=== PATIENT | female | born 1945 | race Caucasian/White ===

== ENCOUNTER → 2017-02-06 | Outpatient (CLI) | payer MEDICARE, MEDICAID | END | disposition home or self-care (01) | LOC: NC 14:47 | DX: R30.0 Dysuria (principal) ==

== ENCOUNTER → 2017-03-12 | Outpatient (CLI) | payer MEDICARE, MEDICAID | END | disposition home or self-care (01) | LOC: NC 13:12 | DX: I10 Essential (primary) hypertension (principal); E11.9 Type 2 diabetes mellitus without complications ==

== ENCOUNTER → 2017-04-19 | Outpatient (CLI) | payer MEDICARE, MEDICAID | END | disposition home or self-care (01) | LOC: NC 13:20 | DX: R30.0 Dysuria (principal) ==

== ENCOUNTER → 2017-05-10 | Outpatient (CLI) | payer MEDICARE, MEDICAID ==
--- NOTE | 2017-05-12 12:58 | US ---
EXAM DESCRIPTION: Renal CLINICAL HISTORY: 71 years, Female, CHRONIC CYSTITIS COMPARISON: None. FINDINGS: Right kidney 10.7 cm left kidney 9.3 cm. No hydronephrosis. There is a hyperechoic region lateral interpolar region of the left kidney measuring 10 x 12 x 10 mm. This is indeterminate but likely benign. This may be an area of benign fatty infiltration or other fatty mass. Doppler images of this region were not obtained at time of interpretation. No images of the bladder are provided IMPRESSION: A likely benign hyperechoic region in the lateral left kidney interpolar region about 1 cm present. This can be better characterize with a renal protocol CT scan. Alternatively consider short-term repeat ultrasound in about 3-4 months to evaluate for stability. Kidneys otherwise unremarkable. Electronically signed by: Brian Villanueva MD 05/12/2017 12:56 PM CDT
== END | disposition home or self-care (01) ==
LOC: US 13:17
PROVIDERS: ATTEND Urology
DX: N30.10 Interstitial cystitis (chronic) without hematuria (principal)

== ENCOUNTER → 2017-08-14 | Outpatient (CLI) | payer MEDICARE, MEDICAID | LOC: YCFC.O 10:13 | DX: R53.83 Other fatigue (principal); R73.01 Impaired fasting glucose ==

== ENCOUNTER → 2018-03-13 | Outpatient (CLI) | payer MEDICARE, MEDICAID | LOC: YCFC.O 10:27 | PROVIDERS: ATTEND Nurse Practitioner Family | DX: E11.9 Type 2 diabetes mellitus without complications (principal); E78.5 Hyperlipidemia, unspecified; I10 Essential (primary) hypertension ==

== ENCOUNTER → 2018-05-28 | Outpatient (CLI) | payer MEDICARE, MEDICAID | LOC: NC 13:59 | PROVIDERS: ATTEND Nurse Practitioner Family | DX: R30.0 Dysuria (principal) ==

== ENCOUNTER → 2018-11-04 | Outpatient (CLI) | payer MEDICARE, MEDICAID | LOC: NC 12:40 | PROVIDERS: ATTEND Family Medicine | DX: R30.0 Dysuria (principal) ==

== ENCOUNTER → 2019-01-20 | Outpatient (CLI) | payer MEDICARE, MEDICAID | LOC: NC 16:48 | PROVIDERS: ATTEND Family Medicine | DX: I10 Essential (primary) hypertension (principal); E11.9 Type 2 diabetes mellitus without complications ==

== ENCOUNTER → 2019-04-01 | Outpatient (CLI) | payer MEDICARE, MEDICAID | LOC: NC 20:52 | PROVIDERS: ATTEND Family Medicine | DX: E11.9 Type 2 diabetes mellitus without complications (principal); R63.4 Abnormal weight loss ==

== ENCOUNTER → 2019-06-17 | Outpatient (CLI) | payer MEDICARE, MEDICAID | LOC: NC 14:47 | PROVIDERS: ATTEND Family Medicine | DX: R30.0 Dysuria (principal) ==

== ENCOUNTER 2019-06-28 10:56 | Emergency (ER) | payer MEDICARE, MEDICAID ==
--- NOTE | 2019-06-28 12:08 | CT ---
EXAM DESCRIPTION: Head CLINICAL HISTORY: fall, low bs, mild slurring of speech COMPARISON: None available TECHNIQUE: Non contrast cranial CT FINDINGS: No acute intracranial hemorrhage, transcortical infarct, mass or mass effect. The Ventricles and sulci are unremarkable. No hydrocephalus. The chase-white matter differentiation is intact. Periventricular and deep white matter hypodensities are nonspecific but likely related to chronic microvascular ischemic changes. Small hypodensity within the left insular cortex likely related to prior lacunar infarct. No displaced calvarial fracture. Partial calcification of the left lacrimal gland. The visualized paranasal sinuses and the mastoids are clear. IMPRESSION: 1. No acute intracranial abnormality is seen on CT. This exam was performed according to our departmental dose-optimization program, which includes automated exposure control, adjustment of the mA and/or kV according to patient size and/or use of iterative reconstruction technique. Electronically signed by: Jerrell Hendrix DO 06/28/2019 12:07 PM CDT
--- NOTE | 2019-06-28 12:11 | RAD ---
EXAM DESCRIPTION: Chest,1 View CLINICAL HISTORY: 73 years Female, fall, low bs, weakness COMPARISON: None. TECHNIQUE: AP portable chest. FINDINGS: The lungs are hypoinflated. No focal consolidation, significant pneumothorax or pleural effusion seen. The heart is at the upper limits of normal in size. The aortic is partially calcified. No acute osseous abnormality. IMPRESSION: No acute cardiopulmonary process. Electronically signed by: Jerrell Hendrix DO 06/28/2019 12:09 PM CDT
--- NOTE | 2019-06-28 13:23 | ED.PDOC ---
History of Present Illness - General Chief Complaint: Trauma Stated Complaint: s/p fall Time Seen by Provider: 06/28/19 10:58 Source: patient Exam Limitations: no limitations - History of Present Illness Initial Comments: the patient is a 73-year-old female presenting to the emergency room after having somewhat fallen at home. She was feeling weak and feeling tired. She actually skipped supper last night and had not eaten breakfast. She is a diabetic who takes insulin. When glucose was checked by EMS and was in the 30s. The patient is still slightly slurring her speech upon arrival here in blood sugars to fall back down from 238 down to 71 fairly quickly. No fevers. No sore throat or runny nose. She has apparently maintained getting some lower blood sugars over the last couple of weeks. Timing/Duration: unsure Severity: moderate Improving Factors: medication Worsening Factors: nothing Associated Symptoms: malaise Allergies/Adverse Reactions: Allergies Bupropion Allergy (Unknown, Verified 06/28/19 11:22) Dapagliflozin [From Farxiga] Allergy (Unknown, Verified 06/28/19 11:22) Topiramate [From Topamax] Allergy (Unknown, Verified 06/28/19 11:22) Home Medications: Ambulatory Orders Amlodipine Besylate 10 mg PO DAILY 06/28/19 Ascorbic Acid [C-500 Prolonged Release] 500 mg PO BID 06/28/19 Aspirin [Aspirin Childrens] 81 mg PO DAILY 06/28/19 Atenolol [Tenormin] 50 mg PO BID 06/28/19 Clonazepam 0.5 mg PO DAILY PRN 06/28/19 Cranberry-Vitamin C-Vitamin E [Cranberry Plus Vitamin C] 1 cap PO BID 06/28/19 Insulin Glargine [Toujeo Solostar] 15 unit SC DAILY 06/28/19 Linagliptin-Metformin HCl [Jentadueto] 1 tab PO BID 06/28/19 Lisinopril 20 mg PO BID 06/28/19 Meloxicam 15 mg PO DAILY 06/28/19 Multiple Vitamins W/ Minerals [Womens Multi] 1 cap PO DAILY 06/28/19 Pantoprazole Sodium [Protonix] 20 mg PO DAILY 06/28/19 Pravastatin Sodium [Pravachol] 40 mg PO BEDTIME 06/28/19 Trazodone HCl [Trazodone Hydrochloride] 100 mg PO BEDTIME 06/28/19 Review of Systems - Review of Systems Constitutional: States: malaise, weakness EENTM: States: no symptoms reported Respiratory: States: no symptoms reported Cardiology: States: no symptoms reported Gastrointestinal/Abdominal: States: no symptoms reported Genitourinary: States: no symptoms reported Musculoskeletal: States: no symptoms reported Skin: States: no symptoms reported Neurological: States: see HPI Endocrine: States: no symptoms reported All other Systems: No Change from Baseline Past Medical History (General) - Patient Medical History Hx Stroke: No Hx Congestive Heart Failure: No Hx Hypertension: Yes Hx Diabetes: Yes Surgical History: cholecystectomy - Vaccination History Hx Influenza Vaccination: Yes Hx Pneumococcal Vaccination: No - Social History Hx Tobacco Use: Yes Family Medical History - Family History Mother Family History: Unknown Living Status: Physical Exam - Physical Exam General Appearance: Alert, No apparent distress, Other - mild initial slurring of speech that does clear after glucose improves. Eye Exam: bilateral normal Ears, Nose, Throat: hearing grossly normal, normal ENT inspection, normal pharynx Neck: full range of motion, supple Respiratory: lungs clear, normal breath sounds, no respiratory distress, no accessory muscle use Cardiovascular/Chest: normal peripheral pulses, regular rate, rhythm, no edema Peripheral Pulses: radial,right: 2+, radial,left: 2+ Gastrointestinal/Abdominal: non tender, soft Rectal Exam: deferred Back Exam: no CVA tenderness, no vertebral tenderness Extremity: normal range of motion, non-tender, normal inspection, no pedal edema, normal capillary refill 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, alert, normal mood/affect, oriented x 3 - see above Skin Exam: normal color Comments: Vital Signs - 24 hr 06/28/19 06/28/19 06/28/19 11:12 12:06 13:00 Temperature 97.4 F L Pulse Rate [ 64 53 L 60 Left Brachial] Respiratory 20 13 Rate Blood Pressure 144/65 146/67 145/67 [Left Arm] O2 Sat by Pulse 95 97 Oximetry 06/28/19 11:22 Telemetry .CONTINUOUS 06/28/19 11:23 Vital Signs-Tilt PRN 06/28/19 11:30 EKG STAT 06/28/19 11:35 Urine Culture Stat 06/28/19 13:21 GLUCOSE, FINGER STICK Stat 06/28/19 Lunch Regular Diet Laboratory Results - last 24 hr 06/28/19 06/28/19 06/28/19 11:35 11:35 11:35 WBC 7.8 RBC 3.86 L Hgb 11.9 L Hct 34.9 L MCV 90.6 MCH 30.7 MCHC 33.9 RDW 14.1 Plt Count 153 MPV 8.4 Absolute Neuts (auto) 5.90 Absolute Lymphs (auto) 1.30 Absolute Monos (auto) 0.40 Absolute Eos (auto) 0.10 Absolute Basos (auto) 0.10 Neutrophils % 75.6 Lymphocytes % 16.7 L Monocytes % 5.4 Eosinophils % 1.6 Basophils % 0.7 Sodium 140 Potassium 3.9 Chloride 102 Carbon Dioxide 27 Anion Gap 14.9 BUN 26 H Creatinine 1.10 BUN/Creatinine Ratio 23.6 H POC Glucose Random Glucose 77 Serum Osmolality 283.0 Calcium 9.9 Magnesium 1.8 Total Bilirubin 0.6 AST 24 ALT 17 Alkaline Phosphatase 37 L Creatine Kinase 47 CK-MB (CK-2) 2.0 CK-MB (CK-2) % Not Reportable Troponin I < 0.02 B-Natriuretic Peptide 82.7 Serum Total Protein 7.0 Albumin 4.2 Globulin 2.8 Albumin/Globulin Ratio 1.5 TSH 0.60 Urine Color Urine Appearance Urine pH Ur Specific [place] Urine Protein Urine Glucose (UA) Urine Ketones Urine Blood Urine Nitrite Urine Bilirubin Urine Urobilinogen Ur Leukocyte Esterase Urine RBC Urine WBC Ur Epithelial Cells Urine Bacteria 06/28/19 06/28/19 11:35 12:07 WBC RBC Hgb Hct MCV MCH MCHC RDW Plt Count MPV Absolute Neuts (auto) Absolute Lymphs (auto) Absolute Monos (auto) Absolute Eos (auto) Absolute Basos (auto) Neutrophils % Lymphocytes % Monocytes % Eosinophils % Basophils % Sodium Potassium Chloride Carbon Dioxide Anion Gap BUN Creatinine BUN/Creatinine Ratio POC Glucose 61 L Random Glucose Serum Osmolality Calcium Magnesium Total Bilirubin AST ALT Alkaline Phosphatase Creatine Kinase CK-MB (CK-2) CK-MB (CK-2) % Troponin I B-Natriuretic Peptide Serum Total Protein Albumin Globulin Albumin/Globulin Ratio TSH Urine Color Yellow Urine Appearance Clear Urine pH 6.0 Ur Specific [place] 1.010 Urine Protein Negative Urine Glucose (UA) Negative Urine Ketones Negative Urine Blood Negative Urine Nitrite Negative Urine Bilirubin Negative Urine Urobilinogen 0.2 Ur Leukocyte Esterase Small H Urine RBC 0 Urine WBC 1-3 Ur Epithelial Cells 0 Urine Bacteria Rare head CT shows no acute pathology. Chest x-ray showed no acute pathology. EKG shows sinus bradycardia at 53 bpm. There is mild poor R-wave progression in anterior leads. There is a Q-wave in lead 3 but not aVF. No definitive ST segment or T-wave changes indicative of acute ischemia. Borderline prolonged QT interval corrected. Progress - Progress Progress: 06/28/19 13:25 the patient is a 73-year-old female presenting to the emergency room after having something of a fall earlier this morning. she did not sustain any injuries. No overt loss of consciousness. This appears to be due to hypoglycemia. From the sounds of her symptoms she probably has been having a few episodes earlier in the week. I'm going to recommend that she decrease her insulin from 15 units once a day down to 7 units once a day. She does need to remember not to skip meals. Workup including head CT, chest x-ray and multiple labs are reassuring otherwise. She does have some mild sinus bradycardia however she is not hypotensive. This is likely not contributing. She does need to follow back up with her primary care doctor later this coming week. ER s were given for any worsening. - EKG/XRAY/CT CT Ordered: Yes CT Interpretation Call Back: Yes Departure - Departure Clinical Impression: Hypoglycemia, Sinus bradycardia Fall at home Qualifiers: Encounter type: initial encounter Qualified Code(s): W19.XXXA - Unspecified fall, initial encounter; Y92.009 - Unspecified place in unspecified non- institutional (private) residence as the place of occurrence of the external cause Disposition: Discharge to Home or Self Care Condition: Fair Departure Forms: ED Discharge - Pt. Copy, Patient Portal Self Enrollment Instructions: Low Blood Sugar, Adult (DC) Diet: diabetic diet Activity: increase activity as tolerated Referrals: Josephine Sinclair NP [Primary Care Provider] - 1-2 Weeks Home Medications: Ambulatory Orders Amlodipine Besylate 10 mg PO DAILY 06/28/19 Ascorbic Acid [C-500 Prolonged Release] 500 mg PO BID 06/28/19 Aspirin [Aspirin Childrens] 81 mg PO DAILY 06/28/19 Atenolol [Tenormin] 50 mg PO BID 06/28/19 Clonazepam 0.5 mg PO DAILY PRN 06/28/19 Cranberry-Vitamin C-Vitamin E [Cranberry Plus Vitamin C] 1 cap PO BID 06/28/19 Insulin Glargine [Toujeo Solostar] 15 unit SC DAILY 06/28/19 Linagliptin-Metformin HCl [Jentadueto] 1 tab PO BID 06/28/19 Lisinopril 20 mg PO BID 06/28/19 Meloxicam 15 mg PO DAILY 06/28/19 Multiple Vitamins W/ Minerals [Womens Multi] 1 cap PO DAILY 06/28/19 Pantoprazole Sodium [Protonix] 20 mg PO DAILY 06/28/19 Pravastatin Sodium [Pravachol] 40 mg PO BEDTIME 06/28/19 Trazodone HCl [Trazodone Hydrochloride] 100 mg PO BEDTIME 06/28/19 Additional Instructions: the patient is a 73-year-old female presenting to the emergency room after having something of a fall earlier this morning. she did not sustain any injuries. No overt loss of consciousness. This appears to be due to hypoglycemia. From the sounds of her symptoms she probably has been having a few episodes earlier in the week. I'm going to recommend that she decrease her insulin from 15 units once a day down to 7 units once a day. She does need to remember not to skip meals. Workup including head CT, chest x-ray and multiple labs are reassuring otherwise. She does have some mild sinus bradycardia however she is not hypotensive. This is likely not contributing. She does need to follow back up with her primary care doctor later this coming week. If she continues to have episodes then keeping some glucagon on hand may be warranted. ER s were given for any worsening.
[2019-06-28 13:44] VITALS: BP 159/63; TEMP 96.7; O2SAT 96
== END 2019-06-28 13:45 | disposition home or self-care (01) ==
LOC: ER 10:56
DX: E11.649 Type 2 diabetes mellitus with hypoglycemia without coma (principal); R00.1 Bradycardia, unspecified; I10 Essential (primary) hypertension; Z79.4 Long term (current) use of insulin; Z87.891 Personal history of nicotine dependence; Z79.82 Long term (current) use of aspirin; Z79.899 Other long term (current) drug therapy; Z88.8 Allergy status to other drugs, medicaments and biological substances

== ENCOUNTER → 2019-07-03 | Outpatient (CLI) | payer MEDICARE, MEDICAID | LOC: NC 11:50 | PROVIDERS: ATTEND Family Medicine | DX: R39.0 Extravasation of urine (principal); R30.0 Dysuria ==

== ENCOUNTER → 2019-08-07 | Outpatient (CLI) | payer MEDICARE, MEDICAID | LOC: NC 12:00 | PROVIDERS: ATTEND Family Medicine | DX: R30.0 Dysuria (principal) ==

== ENCOUNTER → 2019-08-19 | Outpatient (CLI) | payer MEDICARE, MEDICAID | LOC: NC 12:05 | PROVIDERS: ATTEND Family Medicine | DX: R30.0 Dysuria (principal) ==

== ENCOUNTER → 2019-09-18 | Outpatient (CLI) | payer MEDICARE, MEDICAID | LOC: NC 17:48 | PROVIDERS: ATTEND Family Medicine | DX: R30.0 Dysuria (principal) ==

== ENCOUNTER → 2019-10-29 | Outpatient (CLI) | payer MEDICARE, MEDICAID | LOC: NC 14:06 | PROVIDERS: ATTEND Family Medicine | DX: E11.9 Type 2 diabetes mellitus without complications (principal); I10 Essential (primary) hypertension; E78.5 Hyperlipidemia, unspecified; R30.0 Dysuria ==

== ENCOUNTER → 2019-12-11 | Outpatient (CLI) | payer MEDICARE, MEDICAID ==
--- NOTE | 2019-12-12 19:52 | US ---
EXAM DESCRIPTION: Renal: Ultrasound. CLINICAL HISTORY: 74 years Female RENAL LESION COMPARISON: Renal ultrasound bilateral April 2017. TECHNIQUE: Transcutaneous scanning: Two-dimensional and Doppler modes. FINDINGS: Right kidney measures 9.6 x 5.4 x 5.2 cm; mid-renal cortical thickness 14 mm. . Increased cortical echogenicity but less than in the liver. No hydronephrosis No echogenic stones. Smooth contour of the kidney with no perinephric fluid. Normal vascularity. Proximal ureter not visualized.. Left kidney measures 8.9 x 5.3 x 5.1 cm; mid-renal cortical thickness 13 mm.. Increased cortical echogenicity but less than the liver. Focal echogenic mass protrudes from the cortex in the mid kidney and measures 1.0 x 1.0 x 0.9 mm. Posterior acoustic shadowing. Nonvascular. No hydronephrosis. No echogenic stones. Minimally lobulated contour of the kidney with no perinephric fluid. Normal vascularity.. Proximal ureter not seen. Urinary bladder not visualized. Abdominal aorta: Not measured. IMPRESSION: 1. Solid echogenic nodule protruding from the left renal cortex slightly smaller than on the prior study. Could represent lipoma more likely angiomyolipoma. Nonvascular. Stable for 30 month interval. Consider one year ultrasound follow-up. 2. Bilateral kidneys also stable since the prior study and findings are most likely age-related. Electronically signed by: Po Fritz MD 12/12/2019 7:50 PM [facility]
== END ==
LOC: US 09:30
PROVIDERS: ATTEND Urology
DX: D41.02 Neoplasm of uncertain behavior of left kidney (principal)

== ENCOUNTER → 2020-01-26 | Outpatient (CLI) | payer MEDICARE, MEDICAID | DX: E11.9 Type 2 diabetes mellitus without complications (principal) ==

== ENCOUNTER → 2020-04-05 | Outpatient (CLI) | payer MEDICARE, MEDICAID ==
--- NOTE | 2020-04-06 19:04 | MAM ---
EXAM DESCRIPTION: 3D Screening BILATERAL : Digital Mammography. CLINICAL HISTORY: 74 years Female ANNUAL SCREENING . No complaints. No personal history of breast cancer or remote family history of breast cancer. Mother with ovarian cancer at age 33. Menarche age 11. Childbirth age 18. Hysterectomy age 28. HRT 5 or more years ago.. Lifetime risk of developing breast cancer (Tyrer-Cuzick model)(%): 3.2. COMPARISON: Baseline study at this facility. No prior reports available. TECHNIQUE: Bilateral CC and MLO projection full-field images, digital tomosynthesis mammographic technique. Bilateral digital 2-D full-field MLO images. CAD available for 2-D images. FINDINGS: The breast parenchymal density pattern is: Scattered areas of fibroglandular density. No skin thickening or nipple retraction. Vascular calcifications. Skin mole markers. Multiple clusters of right groups of coarse and round microcalcifications. Also other groups of microcalcifications in the lower inner quadrant of the middle third of the left breast and the upper outer quadrant of the middle third of the right breast. Intramammary lymph nodes. Focal asymmetry in the upper outer quadrant of the middle third of the right breast. Mass density 11:00 position middle third right breast 5 cm from the nipple. Focal asymmetry middle third of the upper outer quadrant left breast 6 cm from the nipple at 2:00. No associated microcalcifications. IMPRESSION: BI-RADS CATEGORY: 0 - INCOMPLETE- Need additional imaging evaluation. RECOMMENDATIONS: FOLLOW-UP: Recall for additional imaging: . Bilateral orthogonal digital 2-D spot magnification of the regions of interest. Bilateral 2-D and tomosynthesis full Field images LM projection. Bilateral directed breast ultrasound. Written communication concerning the IMPRESSION and Follow-up, will be mailed to the patient and referring health care provider. Electronically signed by: Po Fritz MD 04/06/2020 7:03 PM CDT
== END ==
LOC: MAMMO 11:30
PROVIDERS: ATTEND Family Medicine
DX: Z12.31 Encounter for screening mammogram for malignant neoplasm of breast (principal)

== ENCOUNTER → 2020-04-21 | Outpatient (CLI) | payer MEDICARE, MEDICAID ==
--- NOTE | 2020-04-22 07:53 | RAD ---
EXAM DESCRIPTION: Pelvis,2 or More Views CLINICAL HISTORY: HIP PAIN BILATERAL COMPARISON: None. FINDINGS: AP neutral and frog-leg lateral views of the pelvis diffuse osteopenia the osseous structures. No acute fracture, focal bone destruction, or joint dislocation is seen. Mild narrowing of the right hip joint with sclerotic changes to the superior lateral acetabulum are seen. Severe narrowing of the left hip joint with sclerotic changes of the acetabulum and femoral head. Circumferential osteophyte of the left femoral head is seen. Severe vascular calcifications are seen. Mild bony hypertrophy of the greater trochanter is seen bilaterally. Severe disc degenerative disease of the lumbar spine is seen. 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 Diffuse osteopenia the osseous structures is identified. Electronically signed by: Yusuf Rahman MD 04/22/2020 7:51 AM CDT
== END ==
LOC: RAD 15:24
PROVIDERS: ATTEND Family Medicine
DX: M16.0 Bilateral primary osteoarthritis of hip (principal); M85.88 Other specified disorders of bone density and structure, other site

== ENCOUNTER → 2020-05-04 | Outpatient (CLI) | payer MEDICARE, MEDICAID | LOC: NC 17:05 | PROVIDERS: ATTEND Family Medicine | DX: E11.40 Type 2 diabetes mellitus with diabetic neuropathy, unspecified (principal) ==

== ENCOUNTER → 2020-05-24 | Outpatient (CLI) | payer MEDICARE, MEDICAID | LOC: NC 12:08 | PROVIDERS: ATTEND Family Medicine | DX: E11.40 Type 2 diabetes mellitus with diabetic neuropathy, unspecified (principal); I10 Essential (primary) hypertension; E78.00 Pure hypercholesterolemia, unspecified ==

== ENCOUNTER → 2020-06-08 | Outpatient (CLI) | payer MEDICARE, MEDICAID | LOC: NC 16:14 | PROVIDERS: ATTEND Family Medicine | DX: E11.40 Type 2 diabetes mellitus with diabetic neuropathy, unspecified (principal); I10 Essential (primary) hypertension ==

== ENCOUNTER → 2020-08-10 | Outpatient (CLI) | payer MEDICARE, MEDICAID | LOC: NC 11:50 | PROVIDERS: ATTEND Family Medicine | DX: E11.40 Type 2 diabetes mellitus with diabetic neuropathy, unspecified (principal); I10 Essential (primary) hypertension; E78.5 Hyperlipidemia, unspecified ==

== ENCOUNTER → 2020-09-21 | Outpatient (CLI) | payer MEDICARE, MEDICAID | LOC: NC 10:37 | PROVIDERS: ATTEND Family Medicine | DX: R30.0 Dysuria (principal) ==

== ENCOUNTER → 2020-10-31 | Outpatient (CLI) | payer MEDICARE, MEDICAID ==
--- NOTE | 2020-10-31 14:35 | MAM ---
EXAM DESCRIPTION: 3D Diagnostic, Bilateral: Digital Mammography CLINICAL HISTORY: 75 yearsFemaleABNORMAL MAMMOGRAM . Patient recall from screening in March but unable to have follow-up diagnostic studies until this date. Focal asymmetry and mass density right breast. Focal asymmetry left breast. Lifetime risk of developing breast cancer (Tyrer-Cuzick model) percentage is 3.2. COMPARISON: Bilateral screening digital breast tomosynthesis April 05. TECHNIQUE: Bilateral LM projection full-field images, digital mammographic tomosynthesis technique. Bilateral 2-D digital full-field MLO images. LM projection. Also bilateral spot magnification 2-D images. CAD available for 2-D images. Transcutaneous scanning of the bilateral breast utilizing chase-scale and Doppler modes. Scanning performed by the master technician and Dr. Fritz. FINDINGS: The breast parenchymal density pattern is: Scattered areas of fibroglandular density. Mass density in the right breast 11:00 position 5 cm from the nipple with mostly circumscribed margin. Focal asymmetry, larger and more lateral and associated with microcalcifications and vascular calcifications. Other bilateral groups of microcalcifications have a benign appearance. Vascular calcifications are also present bilaterally. No focal mass, partially circumscribed 5 cm from the nipple at the 2:30-3:00 position. Not associated with calcifications. Vascular calcifications and groups of benign type calcifications. No skin thickening or nipple retraction Breast ultrasound: Scanning middle third left breast laterally is mostly fatty tissue with minimal fibroglandular tissue. Hypoechoic tissue, partially circumscribed and posterior margin not well defined. Dimensions are 9.5 x 6.7 mm with no vascularity. Moderate internal orientation, but posterior acoustic shadowing predominates. A second hypoechoic mass in the adjacent tissue is circumscribed and wider than tall orientation and no posterior acoustic signature. Dimensions are 5.5 x 4.4 mm with no vascularity. No fluid collection or focal cyst in the left breast. Scanning upper outer quadrant of the anterior middle third of the right breast. Mostly fatty tissues with minimal fibroglandular tissues. 5 cm the nipple at 11:00 is a hypoechoic mass with partially circumscribed margins measuring 9.3 x 8.7 mm. Partially circumscribed with poor definition of the posterior margin and posterior acoustic shadowing. Nonvascular. Round calcification more superiorly in the stomach cutaneous adipose tissue with circumscribed appearance and posterior acoustic shadowing. No fluid collection or focal cyst in the right breast. IMPRESSION: BI-RADS Category 4: SUSPICIOUS. Sub-category 4A - Low Suspicion For Malignancy. RECOMMENDATION: Surgical consultation and tissue diagnosis if there are no clinical contraindications. The FINDINGS and FOLLOW-UP plan were reviewed in person with the patient following the examination. Written communication explaining the IMPRESSION and FOLLOW-UP will be mailed to the patient and referring care provider. CRITICAL COMMUNICATION: The critical value was communicated directly by Dr. Fritz via phone call, with Dr. Duane Castellano, at approximately 1400 hours, on October 31, 2020. Electronically signed by: Po Fritz MD 10/31/2020 2:34 PM [facility]
--- NOTE | 2020-10-31 14:38 | US ---
EXAM DESCRIPTION: Breast,Bilateral: Ultrasound CLINICAL HISTORY: 75 yearsFemaleABNORMAL MAMMO patient recalled from screening examination in March but unable to have diagnostic workup until this visit. Bilateral focal asymmetry and mass densities. COMPARISON: Bilateral screening digital breast tomosynthesis April 05. Bilateral diagnostic digital wrist tomosynthesis on this visit. TECHNIQUE: Transcutaneous scanning of the bilateral breasts utilizing chase-scale and Doppler modes. Scanning performed by the web applications developer observation by Dr. Fritz. FINDINGS: Breast ultrasound: Scanning middle third left breast laterally is mostly fatty tissue with minimal fibroglandular tissue. Hypoechoic tissue, partially circumscribed and posterior margin not well defined. Dimensions are 9.5 x 6.7 mm with no vascularity. Moderate internal orientation, but posterior acoustic shadowing predominates. A second hypoechoic mass in the adjacent tissue is circumscribed and wider than tall orientation and no posterior acoustic signature. Dimensions are 5.5 x 4.4 mm with no vascularity. No fluid collection or focal cyst in the left breast. Scanning upper outer quadrant of the anterior middle third of the right breast. Mostly fatty tissues with minimal fibroglandular tissues. 5 cm the nipple at 11:00 is a hypoechoic mass with partially circumscribed margins measuring 9.3 x 8.7 mm. Partially circumscribed with poor definition of the posterior margin and posterior acoustic shadowing. Nonvascular. Round calcification more superiorly in the stomach cutaneous adipose tissue with circumscribed appearance and posterior acoustic shadowing. No fluid collection or focal cyst in the right breast. IMPRESSION: BI-RADS Category 4: SUSPICIOUS. Sub-category 4A - Low Suspicion For Malignancy. RECOMMENDATION: Surgical consultation and tissue diagnosis if there are no clinical contraindications. The FINDINGS and FOLLOW-UP plan were reviewed in person with the patient following the examination. Written communication explaining the IMPRESSION and FOLLOW-UP will be mailed to the patient and referring care provider. CRITICAL COMMUNICATION: The critical value was communicated directly by Dr. Fritz via phone call, with Dr. Duane Castellano, at approximately 1400 hours, on October 31, 2020. Electronically signed by: Po Fritz MD 10/31/2020 2:36 PM [facility]
== END ==
LOC: MAMMO 11:00
PROVIDERS: ATTEND Family Medicine
DX: R92.8 Other abnormal and inconclusive findings on diagnostic imaging of breast (principal)
CPT/HCPCS: 76641; 77066; G0279

== ENCOUNTER → 2020-11-14 | Outpatient (CLI) | payer MEDICARE, MEDICAID | LOC: NC 20:07 | PROVIDERS: ATTEND Family Medicine | DX: E87.6 Hypokalemia (principal); E11.40 Type 2 diabetes mellitus with diabetic neuropathy, unspecified; I10 Essential (primary) hypertension ==